=== PATIENT | female | born 1975 | race Caucasian/White ===

== ENCOUNTER 2017-02-03 10:00 | Emergency (ER) | payer OTHER ==
[~2017-02-03] VITALS: Ht 172.7 cm; Wt 94.2 kg
[~2017-02-03 10:00] MED LIST: IRON325 M1 PO
[2017-02-03] MEDS ORDERED: LIDODERM 5% P1 PATCH TD (11:04)
[2017-02-03] MEDS ORDERED: NAPROSYN500 MG PO (11:04)
[2017-02-03] MEDS ORDERED: BACLOFEN10 MG PO (11:04)
[2017-02-03 11:15] VITALS: BP 140/77
== END 2017-02-03 11:16 | disposition home or self-care (01) ==
LOC: EME 10:00
DX: S16.1XXA Strain of muscle, fascia and tendon at neck level, initial encounter (principal); J40 Bronchitis, not specified as acute or chronic; D50.9 Iron deficiency anemia, unspecified; F32.9 Major depressive disorder, single episode, unspecified; Z88.8 Allergy status to other drugs, medicaments and biological substances
CPT/HCPCS: 99281; 99284; J1885